=== PATIENT | male | born 1940 | race Caucasian/White ===

== ENCOUNTER 2021-10-13 03:58 | Inpatient (IN) | payer MEDICARE, OTHER ==
[~2021-10-13] VITALS: Ht 172.7 cm; Wt 82.6 kg
[2021-10-13] VITALS (27 sets, daily range): BP systolic 119–155; BP diastolic 62–82
[2021-10-13 05:00] LABS: BASOPHILS % (AUTO) 0.3 % (0.0-5.0); EOSINOPHILS % (AUTO) 0.2 % (0.0-8.0); HEMATOCRIT 40.8 % (42-54); LYMPHOCYTES % (AUTO) 6.9 % (21.0-51.0); MEAN CORPUSCULAR HEMOGLOBIN 31.6 pg (27.0-33.0); MEAN CORPUSCULAR VOLUME 90.1 fL (79-99); MONOCYTES % (AUTO) 6.6 % (3.0-13.0); NEUTROPHILS % (AUTO) 85.6 % (40.0-77.0); PLATELET COUNT (AUTO) 201 K/uL (130-400); RED BLOOD CELL COUNT(AUTO) 4.53 MIL/uL (4.50-6.20); RED CELL DISTRIBUTION WIDTH 12.4 % (11.0-15.5); WHITE BLOOD COUNT (AUTO) 17.2 K/uL (4.8-10.8)
[2021-10-13 05:34] LABS: ALBUMIN 4.3 g/dL (3.5-5.0); CREATININE 1.2 mg/dL (0.5-1.5); TOTAL PROTEIN, SERUM 8.9 g/dL (6.0-8.3)
[2021-10-13 06:11] LABS: INR 1.1 (0.85-1.15); PROTHROMBIN TIME 11.9 SEC (9.6-11.6)
[2021-10-13 06:12] LABS: PARTIAL THROMBOPLASTIN TIME 28.4 SEC (26.3-35.5)
[2021-10-13] MEDS ORDERED: MORPHINE 4 MG SYG IV SCH (06:30)
[2021-10-13] MEDS ORDERED: ZOSYN 3.375GM +NS 50ML IV SCH (06:30)
[2021-10-13] MEDS ORDERED: ONDANSETRON 4MG INJ IVP SCH (06:30)
[2021-10-13] MEDS ORDERED: ZOSYN 3.375GM+NS 50ML 50 ML IV SCH (07:00)
[2021-10-13 08:32] LABS: APPEARANCE,URINE Clear (CLEAR); BILIRUBIN,URINE Negative (NEGATIVE); COLOR,URINE Yellow (YELLOW); GLUCOSE, URINE (UA) Negative (NEGATIVE); KETONES,URINE Negative (NEGATIVE); LEUKOCYTE ESTERASE ,URINE Negative (NEGATIVE); NITRATE,URINE Negative (NEGATIVE); OCCULT BLOOD,URINE Negative (NEGATIVE); PH,URINE 7.5 (5.0-8.0); PROTEIN,URINE POS 1+ mg/dL (NEGATIVE)
[2021-10-13 08:41] LABS: BACTERIA,URINE None Seen /HPF (None Seen); RBC,URINE 0-1 /HPF (0-1); SQUAMOUS EPITHELIAL CELL,UR 0-2 /HPF (0-2); WBC,URINE None Seen /HPF (0-1)
[2021-10-13] MEDS ORDERED: BUPIVACAINE/PF 0.5% 10ML VIAL ONE (09:18)
[2021-10-13] MEDS ORDERED: DEXAMETHASONE SOD PHOSPHATE 10MG/ML 1ML VIAL ONE (09:24)
[2021-10-13] MEDS ORDERED: LIDOCAINE PF 100MG/5ML (2%) SYRINGE 5ML ONE (09:24)
[2021-10-13] MEDS ORDERED: SUCCINYLCHOLINE 200MG/10ML SYR ONE (09:24)
[2021-10-13] MEDS ORDERED: MIDAZOLAM HCL 1 MG/ML 2ML VIAL ONE (09:25)
[2021-10-13] MEDS ORDERED: GLYCOPYRROLATE 1 MG/5 ML SYRINGE ONE (09:25)
[2021-10-13] MEDS ORDERED: PROPOFOL 10 MG/ML 20ML VIAL IV ONE (09:26)
[2021-10-13] MEDS ORDERED: ONDANSETRON 4MG INJ ONE (09:26)
[2021-10-13] MEDS ORDERED: NEOSTIGMINE 5MG/5ML SYR IV ONE (09:26)
[2021-10-13] MEDS ORDERED: ROCURONIUM 10MG/1ML SYR 10 MG/ML ML ONE (09:26)
[2021-10-13] MEDS ORDERED: FENTANYL CITRATE PF 50 MCG/1 ML 2ML VIAL ONE (09:27)
[2021-10-13] MEDS ORDERED: HYDROMORPHONE 0.5 MG SYG (0.5MG/0.5ML) IVP PRN (09:30)
[2021-10-13] MEDS ORDERED: 0.9%NACL 1000ML 1,000 ML IV SCH (09:30)
[2021-10-13 09:33] LABS: CREATININE,URINE RANDOM 185 mg/dL (30-135); SODIUM,URINE RANDOM 84 mmol/l (40-220)
[2021-10-13] MEDS ORDERED: EPHEDRINE SULFATE 50 MG/ML AMPULE ONE (10:01)
[2021-10-13] MEDS ORDERED: ONDANSETRON 4MG INJ IVP PRN (10:30)
[2021-10-13] MEDS ORDERED: TRAMADOL HCL 50 MG TABLET PO SCH (10:30)
[2021-10-13] MEDS: LACTATED RINGERS 1000ML 1,000 ML IV SCH ×2 (13:30→23:50)
[2021-10-13 14:56] LABS: CREATININE 1.2 mg/dL (0.5-1.5); POTASSIUM 4.8 mmol/L (3.5-5.1); URIC ACID 3.7 mg/dL (2.6-7.2)
[2021-10-13 15:30] LABS: APPEARANCE,URINE Clear (CLEAR); BILIRUBIN,URINE Negative (NEGATIVE); COLOR,URINE Yellow (YELLOW); GLUCOSE, URINE (UA) Negative (NEGATIVE); KETONES,URINE Negative (NEGATIVE); LEUKOCYTE ESTERASE ,URINE Negative (NEGATIVE); NITRATE,URINE Negative (NEGATIVE); OCCULT BLOOD,URINE Negative (NEGATIVE); PH,URINE 7.5 (5.0-8.0); PROTEIN,URINE Negative (NEGATIVE); UROBILINOGEN,URINE 0.2 mg/dL (0.2-1.0)
[2021-10-13] MEDS ORDERED: HYDR12.54 PO (16:12)
[2021-10-13] MEDS ORDERED: LOSA100T58 PO (16:12)
[2021-10-13] MEDS ORDERED: ATOR10TA69 PO (16:12)
[2021-10-13] MEDS ORDERED: AMLO2.5T4 PO (16:12)
[2021-10-13] MEDS ORDERED: CETI-89 PO (16:12)
[2021-10-13] MEDS ORDERED: BENZOCAINE/MENTH/CETYLPYRD CL 1 EACH LOZENGE MM PRN (19:30)
[2021-10-13 20:42] LABS: CREATININE 1.5 mg/dL (0.5-1.5); POTASSIUM 3.9 mmol/L (3.5-5.1)
[2021-10-13] MEDS: GABAPENTIN 100 MG CAPSULE PO SCH (20:42)
[2021-10-13] MEDS: ZOSYN 3.375GM +NS 50ML IV SCH ×2 (20:42→21:00)
[2021-10-13] MEDS ORDERED: CETIRIZINE HCL 5 MG TABLET PO SCH (21:00)
[2021-10-14] VITALS: BP 108/55
[2021-10-14 04:00] VITALS: BP 113/61
[2021-10-14 04:10] LABS: HEMATOCRIT 35.3 % (42-54); MEAN CORPUSCULAR HEMOGLOBIN 32.2 pg (27.0-33.0); MEAN CORPUSCULAR HGB CONC 35.1 g/dL (32.0-36.0); MEAN CORPUSCULAR VOLUME 91.7 fL (79-99); PLATELET COUNT (AUTO) 163 K/uL (130-400); RED BLOOD CELL COUNT(AUTO) 3.85 MIL/uL (4.50-6.20); RED CELL DISTRIBUTION WIDTH 12.7 % (11.0-15.5); WHITE BLOOD COUNT (AUTO) 11.9 K/uL (4.8-10.8)
[2021-10-14 04:30] LABS: BASOPHILS % (MANUAL) 3 % (0-2); EOSINOPHILS % (MANUAL) 3 % (1-6); LYMPHOCYTES % (MANUAL) 23 % (22-44); MAN.DIFF COMMENT-IMPRESSION MANUAL DIFFERENTIAL; MONOCYTES % (MANUAL) 6 % (2-9); PLATELET MORPHOLOGY COMMENT ADEQUATE; SEGMENTED NEUTROPHILS % 65 % (40-70)
[2021-10-14 04:48] LABS: CREATININE 1.4 mg/dL (0.5-1.5); THYROID STIMULATING HORMONE 1.5 uIU/mL (0.36-3.74)
[2021-10-14] MEDS: ZOSYN 3.375GM +NS 50ML IV SCH ×2 (05:05→14:15)
[2021-10-14 08:00] VITALS: BP 116/65
[2021-10-14] MEDS: GABAPENTIN 100 MG CAPSULE PO SCH (08:46)
[2021-10-14] MEDS ORDERED: LOSARTAN 100 MG TABLET PO SCH (09:00)
[2021-10-14] MEDS ORDERED: ATORVASTATIN 10 MG TABLET PO SCH (09:00)
[2021-10-14] MEDS ORDERED: AMLODIPINE 2.5 MG TAB PO SCH (09:00)
[2021-10-14 11:52] VITALS: BP 110/55
[2021-10-14 13:31] LABS: CREATININE 1.4 mg/dL (0.5-1.5); MAGNESIUM 1.8 mg/dL (1.80-2.40); POTASSIUM 3.5 mmol/L (3.5-5.1)
[2021-10-14 15:53] VITALS: BP 132/59
[2021-10-14] MEDS ORDERED: ACET1TAB25 PO (16:16)
[2021-10-14] MEDS ORDERED: AMOX-426 PO (16:16)
== END 2021-10-14 17:30 | disposition home or self-care (01) | DRG 342 ==
LOC: EDH 03:58 → EDHIP 09:11 → 3CH 16:56
PROVIDERS: ADMIT Internal Medicine; ATTEND Internal Medicine
PROC: 0DTJ4ZZ Resection of Appendix, Percutaneous Endoscopic Approach (ICD-10-PCS; principal; 2021-10-13 09:36)
DX: K35.80 Unspecified acute appendicitis (principal); E87.1 Hypo-osmolality and hyponatremia; N18.30 Chronic kidney disease, stage 3 unspecified; I12.9 Hypertensive chronic kidney disease with stage 1 through stage 4 chronic kidney disease, or unspecified chronic kidney disease; Z20.822 Contact with and (suspected) exposure to COVID-19; E78.00 Pure hypercholesterolemia, unspecified; E78.5 Hyperlipidemia, unspecified; I25.10 Atherosclerotic heart disease of native coronary artery without angina pectoris; Z82.49 Family history of ischemic heart disease and other diseases of the circulatory system; Z85.46 Personal history of malignant neoplasm of prostate; Z90.79 Acquired absence of other genital organ(s); Z79.899 Other long term (current) drug therapy
CPT/HCPCS: 36415; 71045; 74176; 80048; 80053; 81001; 81003; 82533; 82570; 82948; 83735; 83930; 83935; 84300; 84443; 84550; 85025; 85610; 85730; 87635; 93005; C9803; G0378; J0330; J1100; J2001; J2250; J2270; J2405; J2543; J2704; J2710; J3010; J3490; J7030